=== PATIENT | male | born 1955 | race African-American/Black ===

== ENCOUNTER 2016-12-09 20:28 | Emergency (ER) | payer OTHER, BC ==
[~2016-12-09] VITALS: Ht 172.7 cm; Wt 88.0 kg
[~2016-12-09 20:28] MED LIST: AMLO5TAB2 PO; AMLO5TAB4 PO
[2016-12-09 20:35] VITALS: BP 138/82
[2016-12-09] MEDS ORDERED: DIPHTH,PERTUSS(ACELL),TET TOX 0.5 ML DISP.SYRIN. VAX IM ONE (21:00)
[2016-12-09] MEDS ORDERED: HYDROcodone/APAP 5/325MG 1 TAB TABLET PO ONE (21:00)
[2016-12-09] MEDS ORDERED: SULF1TAB24 PO (21:02)
--- NOTE | 2016-12-09 21:02 | PHYS DOC ---
Past Medical History Past Medical History: Hypertension, Other Additional Past Medical Histor: GOUT Past Surgical History: No Surgical History Alcohol Use: Heavy Additional Information: STATES HE DRINKS APPROX 2 BEERS A DAY Drug Use: None Adult General Chief Complaint Chief Complaint: ABSCESS HPI HPI Patient is a 61 year old male with history of hypertension who presents with an abscess on the facial area that he noted one week ago. Patient denies any drainage from the area. Denies any fever. Review of Systems Review of Systems Constitutional: Denies fever or chills [] Musculoskeletal: Denies back pain or joint pain [] Integument:an abscess on the facial area Neurologic: Denies headache, focal weakness or sensory changes [] Endocrine: Denies polyuria or polydipsia [] Allergies Allergies Allergies Coded Allergies Type Severity Reaction Last Updated Verified No Known Drug Allergies 12/13/14 No Physical Exam Physical Exam Constitutional: Well developed, well nourished, no acute distress, non-toxic appearance. [] Skin: Left cheondoism next to the hairline with an indurated area approximately 2 x 2 centimeters. The area is warm tender to touch and fluctuant. Back: No tenderness, no CVA tenderness. [] Extremities: No tenderness, no cyanosis, no clubbing, ROM intact, no edema. [] Neurologic: Alert and oriented X 3, normal motor function, normal sensory function, no focal deficits noted. [] Psychologic: Affect normal, judgement normal, mood normal. [] Current Patient Data Vital Signs Vital Signs Date Time Temp Pulse Resp B/P (MAP) Pulse Ox O2 Delivery O2 Flow Rate FiO2 12/09/16 20:35 98.2 91 18 96 Room Air 98.2 EKG EKG [] Radiology/Procedures Radiology/Procedures [] Impressions: Indication: abscess left facial area Procedure: The patient was positioned appropriately. Local anesthesia was not applicable. An incision was then made over the apex of the lesion with an 18- gauge needle and small amount of bloody yellow material was expressed. The drainage cavity was irrigated and covered with sterile gauze. The patients tetanus status updated as needed. The patient tolerated the procedure well. Complications: None Course & Med Decision Making Course & Med Decision Making Pertinent Labs and Imaging studies reviewed. (See chart for details) Patient has an abscess on the left cheondoism that was drained by me as noted in procedures. Discharged with Bactrim. Warm compresses recommended to the area. Given tetanus in the ED. Follow-up with PCP in 1-2 weeks. Dragon Disclaimer Dragon Disclaimer This electronic medical record was generated, in whole or in part, using a voice recognition dictation system. Departure Departure Impression: Primary Impression: Facial abscess Disposition: 01 HOME, SELF-CARE Condition: STABLE Referrals: BART BRAY (PCP) Follow-up with your doctor in 1-2 weeks Patient Instructions: Abscess, Care After Additional Instructions: You were seen for an abscess on the left cheondoism area that was drained in the emergency room. Keep the area clean and dry. Take the prescribed antibiotics until completed. Follow-up with your doctor in 1-2 weeks. Come back to the ED if symptoms does worsen. Scripts Sulfamethoxazole/Trimethoprim (BACTRIM DS TABLET) 1 Each Tablet 1 TAB PO BID, #20 TAB Prov: RAMESH JEAN APRN 12/09/16 RAMESH JEAN APRN Dec 09, 2016 21:02
== END 2016-12-09 21:08 | disposition home or self-care (01) ==
LOC: ER 20:28
DX: L02.01 Cutaneous abscess of face (principal); I10 Essential (primary) hypertension; M10.9 Gout, unspecified; F10.10 Alcohol abuse, uncomplicated
CPT/HCPCS: 10060; 90471; 90715; 99283-25

== ENCOUNTER → 2018-11-15 | Day surgery (SDC) | payer BC ==
[~2018-11-15] MED LIST changes: +ALLO100T PO; +AMLO5TAB10 PO; -AMLO5TAB2 PO; +ATOR20TA58 PO; +HYDR12.575 PO; +IV RINGERS,LACTATED 1000ML 1,000 ML IV SCH; +LIDOCAINE 1% PF 2 ML VIAL. ID PRN; +MIDAZOLAM HCL/PF 2 MG/2 ML VIAL. IV PRN; +NALT50TA PO; +PROPOFOL 20 ML IV ONE; +SULF1TAB24 PO; +fentaNYL PF VIAL 100 MCG/2 ML VIAL IV PRN
[2018-11-15 14:03] VITALS: BP 122/84
--- NOTE | 2018-11-16 14:07 | PATHOLOGY ---
[facility] Accession Number: [id number] . 01 Material submitted: . rectum - RECTAL POLYP . 01 Clinical history: . Positive colon guard . 02 Diagnosis: Colorectal biopsy, rectal polyp: - Hyperplastic polyp. (JPM:monty; 11/16/2018) QMS/11/16/2018 . 02 Comment: There are no adenomatous changes or evidence of malignancy. . (JPM:monty; 11/16/2018) . 02 Electronically signed: . Ian Rm MD, Pathologist NPI- [id number] . 01 Gross description: . The specimen is received in formalin, labeled "Luis Gonzalez, rectal polyp", is a benz soft tissue measuring 0.2 cm in greatest dimension, entirely submitted in A1. ([facility]; 11/15/2018) SHS/SHS . 02 Pathologist provided ICD-10: K62.1 . 02 CPT . 569808 Specimen Comment: A courtesy copy of this report has been sent to Specimen Comment: [phone], . Specimen Comment: Report sent to / DR BRAY [facility]formed at: 01 [facility] [address], [place] [id number] MD Clark Velázquez MD Phone: [phone] Performed at: 02 [facility] [address] [place], [place] [id number] MD Ian Rm MD Phone: [phone]
== END ==
LOC: SURG 12:37
PROVIDERS: ATTEND Internal Medicine Gastroenterology
DX: K62.1 Rectal polyp (principal); K64.0 First degree hemorrhoids; F17.210 Nicotine dependence, cigarettes, uncomplicated; I10 Essential (primary) hypertension; M10.9 Gout, unspecified; I25.10 Atherosclerotic heart disease of native coronary artery without angina pectoris; E78.5 Hyperlipidemia, unspecified; Z88.8 Allergy status to other drugs, medicaments and biological substances
CPT/HCPCS: 45380; 88305; J2704; 45378

== ENCOUNTER 2019-06-03 20:19 | Emergency (ER) | payer BC ==
[~2019-06-03] VITALS: Ht 172.7 cm; Wt 77.3 kg
[~2019-06-03 20:19] MED LIST changes: -IV RINGERS,LACTATED 1000ML 1,000 ML IV SCH; -LIDOCAINE 1% PF 2 ML VIAL. ID PRN; -MIDAZOLAM HCL/PF 2 MG/2 ML VIAL. IV PRN; -PROPOFOL 20 ML IV ONE; -fentaNYL PF VIAL 100 MCG/2 ML VIAL IV PRN
[2019-06-03 21:22] LABS: BASO % 1 % (0-3); EOS % 1 % (0-3); HEMATOCRIT 47.4 % (39.0-53.0); HEMOGLOBIN 15.7 g/dL (13.0-17.5); LYMPH # 1.5 x10^3/uL (1.0-4.8); LYMPH % 35 % (24-48); MEAN CORPUSCULAR HEMOGLOBIN 29 pg (25-35); MEAN CORPUSCULAR HGB CONC 33 g/dL (31-37); MEAN CORPUSCULAR VOLUME 87 fL (79-100); MONO # 0.5 x10^3/uL (0.0-1.1); MONO % 13 % (0-9); NEUT # 2.2 x10^3/uL (1.8-7.7); NEUT % 51 % (31-73); PLATELET COUNT 175 x10^3/uL (140-400); RED BLOOD COUNT 5.43 x10^6/uL (4.30-5.70); RED CELL DISTRIBUTION WIDTH 14.4 % (11.5-14.5); WHITE BLOOD COUNT 4.3 x10^3/uL (4.0-11.0)
[2019-06-03 21:41] LABS: ALBUMIN 3.8 g/dL (3.4-5.0); CALCIUM 8.9 mg/dL (8.5-10.1); GFR 91.6; TOTAL BILIRUBIN 0.7 mg/dL (0.2-1.0); TOTAL PROTEIN 7.7 g/dL (6.4-8.2)
[2019-06-03 21:46] LABS: POTASSIUM 2.8 mmol/L (3.5-5.1)
--- NOTE | 2019-06-03 22:11 | RAD ---
CT MAXILLOFACIAL WO CONTRAST, CT HEAD AND CERVICAL SPINE WO History: Fall. Syncope. Facial injury. Pain. Comparison: None. Technique: Noncontrast CT imaging was performed of the head, maxillofacial and cervical spine. Coronal and sagittal reconstructions were performed. Exposure: One or more of the following individualized dose reduction techniques were utilized for this examination: 1. Automated exposure control 2. Adjustment of the mA and/or kV according to patient size 3. Use of iterative reconstruction technique. Findings: Head CT: No intracranial hemorrhage. No mass effect. No hydrocephalus. Mild brain parenchymal volume loss. Mild foci of decreased attenuation within the hemispheric white matter, most often due to chronic microvascular ischemia. Maxillofacial CT: Anterior maxillary spine fracture. No additional fracture along the maxillary alveolar ridge involving the left central incisor root (series 3 image 33 and series 9 image 26). There is adjacent soft tissue swelling. Inferior lip soft tissue swelling. Nondisplaced right nasal bone fracture. Orbits are unremarkable. Mild scattered paranasal sinus mucosal thickening. Mastoid air cells are clear. No acute calvarial fracture. 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 Normal alignment. Normal vertebral body height. No fracture. Mild multilevel degenerative disc changes most prominent C6-C7. Moderate right facet arthropathy C3-C4 and C4-C5. No high-grade canal or neuroforaminal narrowing. Impression: Head CT: 1. No acute intracranial abnormality. Maxillofacial CT: 1. Acute anterior maxillary alveolar ridge fracture involving the left central incisor. 2. Acute anterior maxillary spine fracture with adjacent soft tissue swelling. 3. Age-indeterminate right nasal bone fracture. Correlate with point tenderness. CT cervical spine: 1. No acute fracture or subluxation of the cervical spine. Electronically signed by: Harinder Garcia DO (06/03/2019 10:07 PM) [facility]
[2019-06-03] MEDS ORDERED: NEOMY/BACITR/POLYMYXIN OINT PACKET. TP ONE ×2 (22:25→23:00)
[2019-06-03] MEDS ORDERED: DIPHTH,PERTUSS(ACELL),TET TOX 0.5 ML DISP.SYRIN. VAX IM ONE ×2 (22:25→23:00)
--- NOTE | 2019-06-03 22:29 | PHYS DOC ---
Past Medical History Past Medical History: Hypertension, Other Additional Past Medical Histor: GOUT Past Surgical History: No Surgical History Alcohol Use: Heavy Drug Use: None Adult General Chief Complaint Chief Complaint: SYNCOPE HPI HPI 63-year-old male presents to the emergency Department after syncopal episodes happened approximately 50 minutes prior to his arrival. Witnessed loss of consciousness presents with 2-3 minutes. Patient states became dizzy, nauseous with little bit of chest and subsequently passed out. He states this happened yesterday as well. Today he hit his face on the concrete with superficial lacerations to his lips patient chipped his tooth as well however no avulsion. He does have evidence of loosening of his 2 front teeth. Patient currently denies any chest pain, dizziness, nausea, vomiting. He does have a headache. Review of Systems Review of Systems Constitutional: Denies fever or chills [] Respiratory: Denies cough or shortness of breath [] Cardiovascular: No additional information not addressed in HPI [] GI: Denies abdominal pain, + nausea, vomiting, no bloody stools or diarrhea [] : Denies dysuria or hematuria [] Musculoskeletal: Denies back pain or joint pain [] Integument: Denies rash or skin lesions [] Neurologic: + headache, focal weakness or sensory changes [] All other systems were reviewed and found to be within normal limits, except as documented in this note. Current Medications Current Medications Current Medications Medications (Trade) Dose Ordered Sig/Anabell Start Time Stop Time Status Last Admin Dose Admin Diphtheria/ Tetanus/Acell Pertussis (Boostrix) 0.5 ml STK-MED ONCE 06/03/19 22:25 06/03/19 22:26 DC Hydralazine HCl (Apresoline Inj) 10 mg 1X ONCE 06/03/19 23:00 06/03/19 23:01 DC 06/03/19 23:22 10 MG Info (CONTRAST GIVEN -- Rx MONITORING) 1 each PRN DAILY PRN 06/03/19 23:45 06/05/19 23:44 Iohexol (Omnipaque 350 Mg/ml) 90 ml 1X ONCE 06/04/19 00:00 06/04/19 00:01 DC 06/04/19 00:09 90 ML Neomycin/ Polymyxin/ Bacitracin (Triple Antibiotic Ointment) 1 pkt 1X ONCE 06/03/19 23:00 06/03/19 23:01 DC 06/03/19 23:21 1 PKT Potassium Chloride/Water 100 ml @ 100 mls/hr Q1H 06/03/19 23:30 06/04/19 03:29 06/03/19 23:22 100 MLS/HR Allergies Allergies Allergies Coded Allergies Type Severity Reaction Last Updated Verified lisinopril Allergy Intermediate 11/15/18 Yes Physical Exam Physical Exam Constitutional: Well developed, well nourished, no acute distress, non-toxic appearance. [] HENT: Normocephalic, abrasion to nose, superficial lacerations to bottom/top lip, loose teeth apreciated - left incisor, bilateral external ears normal, oropharynx moist, no oral exudates, nose normal. [] Eyes: PERRLA, EOMI, conjunctiva normal, no discharge. [] Neck: Normal range of motion, no tenderness, supple, no stridor. [] Cardiovascular:Heart rate regular rhythm, no murmur [] Lungs & Thorax: Bilateral breath sounds clear to auscultation [] Abdomen: Bowel sounds normal, soft, no tenderness, no masses, no pulsatile masses. [] Skin: Warm, dry, no erythema, no rash. [] Back: No tenderness, no CVA tenderness. [] Extremities: No tenderness, no edema. [] Neurologic: Alert and oriented X 3, no focal deficits noted. [] Psychologic: Affect normal, judgement normal, mood normal. [] Current Patient Data Vital Signs Vital Signs Date Time Temp Pulse Resp B/P (MAP) Pulse Ox O2 Delivery O2 Flow Rate FiO2 06/03/19 23:22 74 172/105 06/03/19 21:35 27 99 Room Air 06/03/19 20:35 98.2 98.2 Lab Values Laboratory Tests Test 06/03/19 20:43 06/03/19 22:36 White Blood Count 4.3 x10^3/uL (4.0-11.0) Red Blood Count 5.43 x10^6/uL (4.30-5.70) Hemoglobin 15.7 g/dL (13.0-17.5) Hematocrit 47.4 % (39.0-53.0) Mean Corpuscular Volume 87 fL (79-100) Mean Corpuscular Hemoglobin 29 pg (25-35) Mean Corpuscular Hemoglobin Concent 33 g/dL (31-37) Red Cell Distribution Width 14.4 % (11.5-14.5) Platelet Count 175 x10^3/uL (140-400) Neutrophils (%) (Auto) 51 % (31-73) Lymphocytes (%) (Auto) 35 % (24-48) Monocytes (%) (Auto) 13 % (0-9) H Eosinophils (%) (Auto) 1 % (0-3) Basophils (%) (Auto) 1 % (0-3) Neutrophils # (Auto) 2.2 x10^3/uL (1.8-7.7) Lymphocytes # (Auto) 1.5 x10^3/uL (1.0-4.8) Monocytes # (Auto) 0.5 x10^3/uL (0.0-1.1) Eosinophils # (Auto) 0.0 x10^3/uL (0.0-0.7) Basophils # (Auto) 0.0 x10^3/uL (0.0-0.2) D-Dimer (Mela) 1.42 ug/mlFEU (0.00-0.50) H Sodium Level 139 mmol/L (136-145) Potassium Level 2.8 mmol/L (3.5-5.1) *L Chloride Level 100 mmol/L (98-107) Carbon Dioxide Level 29 mmol/L (21-32) Anion Gap 10 (6-14) Blood Urea Nitrogen 7 mg/dL (8-26) L Creatinine 1.0 mg/dL (0.7-1.3) Estimated GFR (Cockcroft-Gault) 91.6 BUN/Creatinine Ratio 7 (6-20) Glucose Level 140 mg/dL (70-99) H Calcium Level 8.9 mg/dL (8.5-10.1) Magnesium Level 1.7 mg/dL (1.8-2.4) L Total Bilirubin 0.7 mg/dL (0.2-1.0) Aspartate Amino Transferase (AST) 47 U/L (15-37) H Alanine Aminotransferase (ALT) 24 U/L (16-63) Alkaline Phosphatase 65 U/L (46-116) Total Protein 7.7 g/dL (6.4-8.2) Albumin 3.8 g/dL (3.4-5.0) Albumin/Globulin Ratio 1.0 (1.0-1.7) Urine Collection Type Unknown Urine Color Yellow Urine Clarity Clear Urine pH 7.0 Urine Specific [place] <=1.005 Urine Protein Negative mg/dL (NEG-TRACE) Urine Glucose (UA) Negative mg/dL (NEG) Urine Ketones (Stick) Negative mg/dL (NEG) Urine Blood Negative (NEG) Urine Nitrite Negative (NEG) Urine Bilirubin Negative (NEG) Urine Urobilinogen Dipstick 1.0 mg/dL (0.2 mg/dL) Urine Leukocyte Esterase Trace (NEG) Urine RBC 0 /HPF (0-2) Urine WBC 1-4 /HPF (0-4) Urine Bacteria 0 /HPF (0-FEW) Laboratory Tests 06/03/19 20:43 Laboratory Tests 06/03/19 20:43 EKG EKG EKG reviewed interpretation time [address] elevation WA, left axis deviation, normal sinus rhythm, heart rate 82[] Radiology/Procedures Radiology/Procedures [facility] [address] [place] [address] IMAGING REPORT Signed PATIENT: LYSSA LAUREN ACCOUNT: [id number] : 1955 LOCATION: ER AGE: 63 SEX: M EXAM STATUS: PRE ER ORD. PHYSICIAN: ELVIRA BARCENAS MD REASON: fall/syncope PROCEDURE: CT MAXILLOFACIAL WO CONTRAST CT MAXILLOFACIAL WO CONTRAST, CT HEAD AND CERVICAL SPINE WO History: Fall. Syncope. Facial injury. Pain. Comparison: None. Technique: Noncontrast CT imaging was performed of the head, maxillofacial and cervical spine. Coronal and sagittal reconstructions were performed. Exposure: One or more of the following individualized dose reduction techniques were utilized for this examination: 1. Automated exposure control 2. Adjustment of the mA and/or kV according to patient size 3. Use of iterative reconstruction technique. Findings: Head CT: No intracranial hemorrhage. No mass effect. No hydrocephalus. Mild brain parenchymal volume loss. Mild foci of decreased attenuation within the hemispheric white matter, most often due to chronic microvascular ischemia. Maxillofacial CT: Anterior maxillary spine fracture. No additional fracture along the maxillary alveolar ridge involving the left central incisor root (series 3 image 33 and series 9 image 26). There is adjacent soft tissue swelling. Inferior lip soft tissue swelling. Nondisplaced right nasal bone fracture. Orbits are unremarkable. Mild scattered paranasal sinus mucosal thickening. Mastoid air cells are clear. No acute calvarial fracture. 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 Normal alignment. Normal vertebral body height. No fracture. Mild multilevel degenerative disc changes most prominent C6-C7. Moderate right facet arthropathy C3-C4 and C4-C5. No high-grade canal or neuroforaminal narrowing. Impression: Head CT: 1. No acute intracranial abnormality. Maxillofacial CT: 1. Acute anterior maxillary alveolar ridge fracture involving the left central incisor. 2. Acute anterior maxillary spine fracture with adjacent soft tissue swelling. 3. Age-indeterminate right nasal bone fracture. Correlate with point tenderness. CT cervical spine: 1. No acute fracture or subluxation of the cervical spine. Electronically signed by: Harinder Garcia DO (06/03/2019 10:07 PM) [facility] DICTATED and SIGNED BY: HARINDER GARCIA DO DATE: 06/03/192206 [] [facility] [address] [place] [address] IMAGING REPORT Signed PATIENT: LYSSA LAUREN ACCOUNT: [id number] : 1955 LOCATION: ER AGE: 63 SEX: M EXAM STATUS: REG ER ORD. PHYSICIAN: ELVIRA BARCENAS MD REASON: Syncope, OMNI 350, 90 ML IV PROCEDURE: CT ANGIOGRAPHY CHEST EXAM: CT chest with contrast - pulmonary embolus protocol CLINICAL HISTORY: Syncope. COMPARISON: None. TECHNIQUE: CT of the chest following the administration of intravenous contrast during the pulmonary arterial phase. Axial, coronal and sagittal reformatted images were generated including MIP images. ---PQRS compliance statement - One or more of the following individualized dose reduction techniques were utilized for this study: 1. Automated exposure control 2. Adjustment of the mA and/or kV according to patient size 3. Use of iterative reconstruction technique--- FINDINGS: CHEST: Diagnostic quality: Suboptimal. Pulmonary emboli: No pulmonary emboli to the level of the lobar branches. More peripheral vessels are not well assessed. Right heart strain: None Pulmonary arteries: Normal in caliber. Heart is not enlarged. No pericardial effusion. Atherosclerotic calcifications of aorta are seen which appears are grossly normal in caliber. No pleural effusion or pneumothorax. Dependent opacities in the lower lobes including wedge-shaped and linear opacities likely scarring/atelectasis. Left upper lobe calcified granuloma. No thoracic lymphadenopathy. Visualized Upper abdomen: Unremarkable Bones: Mild degenerative changes of spine are seen. Evaluation of the osseous structures limited given MIP reconstructions. IMPRESSION: 1. Suboptimal contrast bolus. No pulmonary emboli to the level of the lobar branches. More peripheral vessels are not well assessed. 2. No lobar consolidation. 3. Linear opacities lower lobes likely scarring/atelectasis. Electronically signed by: Sathya Omalley MD (06/04/2019 12:27 AM) [facility] DICTATED and SIGNED BY: SATHYA OMALLEY MD DATE: 06/04/19 0027 Course & Med Decision Making Course & Med Decision Making Pertinent Labs and Imaging studies reviewed. (See chart for details) []63-year-old male presents to the emergency Department after syncopal episodes happened approximately 50 minutes prior to his arrival. Witnessed loss of consciousness presents with 2-3 minutes. Patient states became dizzy, nauseous with little bit of chest and subsequently passed out. He states this happened yesterday as well. Today he hit his face on the concrete with superficial lac erations to his lips patient chipped his tooth as well however no avulsion. He does have evidence of loosening of his 2 front teeth. Patient currently denies any chest pain, dizziness, nausea, vomiting. He does have a headache. Boostrix provided IM Hypdralazine IM 10mg x 1 Labs reviewed - patient with evidence of hypokalemia, 2.8, d-dimer elevated 1.42, hypomag 1.7 Electrolytes replaced CTA reviewed, no large burden PE CT findings with evidence of alveolar ridge fracture, alveolar spine fracture transfer center contacted [phone] Accepting physician [phone] - DR. BASILIO Christy Disclaimer [place] Disclaimer This electronic medical record was generated, in whole or in part, using a voice recognition dictation system. Departure Departure Impression: Primary Impression: Syncope Additional Impressions: Closed fracture of alveolar ridge of maxilla Hypokalemia Hypertension Hypomagnesemia Disposition: 05 TRANSFER OTHER Condition: STABLE Referrals: BART BRAY (PCP) Critical Care Time Critical care time was 35 minutes exclusive of procedures. Problem Qualifiers Primary Impression: Syncope Syncope type: unspecified Qualified Codes: R55 - Syncope and collapse Additional Impressions: Closed fracture of alveolar ridge of maxilla Encounter type: initial encounter Qualified Codes: S02.42XA - Fracture of alveolus of maxilla, initial encounter for closed fracture Hypertension Hypertension type: essential hypertension Qualified Codes: I10 - Essential (primary) hypertension ELVIRA BARCENAS MD Jun 03, 2019 22:29
[2019-06-03 22:50] LABS: BILIRUBIN,URINE NEGATIVE (NEG); CLARITY,URINE CLEAR; COLOR,URINE YELLOW; NITRITE,URINE NEGATIVE (NEG); PROTEIN,URINE NEGATIVE (NEG-TRACE)
[2019-06-03 22:55] LABS: BACTERIA,URINE 0 /HPF (0-FEW); RBC,URINE 0 /HPF (0-2)
[2019-06-03] MEDS ORDERED: hydrALAZINE 20 MG/ML VIAL. IVP ONE (23:00)
[2019-06-03] MEDS: POTASSIUM CHLORIDE 10MEQ 100 ML IV SCH (23:22)
[2019-06-03] MEDS ORDERED: CONTRAST GIVEN. MC PRN (23:45)
[2019-06-04] MEDS ORDERED: IOHEXOL 350 MG/ML 100 ML VIAL. IV ONE
--- NOTE | 2019-06-04 00:30 | RAD ---
EXAM: CT chest with contrast - pulmonary embolus protocol CLINICAL HISTORY: Syncope. COMPARISON: None. TECHNIQUE: CT of the chest following the administration of intravenous contrast during the pulmonary arterial phase. Axial, coronal and sagittal reformatted images were generated including MIP images. ---PQRS compliance statement - One or more of the following individualized dose reduction techniques were utilized for this study: 1. Automated exposure control 2. Adjustment of the mA and/or kV according to patient size 3. Use of iterative reconstruction technique--- FINDINGS: CHEST: Diagnostic quality: Suboptimal. Pulmonary emboli: No pulmonary emboli to the level of the lobar branches. More peripheral vessels are not well assessed. Right heart strain: None Pulmonary arteries: Normal in caliber. Heart is not enlarged. No pericardial effusion. Atherosclerotic calcifications of aorta are seen which appears are grossly normal in caliber. No pleural effusion or pneumothorax. Dependent opacities in the lower lobes including wedge-shaped and linear opacities likely scarring/atelectasis. Left upper lobe calcified granuloma. No thoracic lymphadenopathy. Visualized Upper abdomen: Unremarkable Bones: Mild degenerative changes of spine are seen. Evaluation of the osseous structures limited given MIP reconstructions. IMPRESSION: 1. Suboptimal contrast bolus. No pulmonary emboli to the level of the lobar branches. More peripheral vessels are not well assessed. 2. No lobar consolidation. 3. Linear opacities lower lobes likely scarring/atelectasis. Electronically signed by: Sathya Roman MD (06/04/2019 12:27 AM) [facility]
[2019-06-04] MEDS: POTASSIUM CHLORIDE 10MEQ 100 ML IV SCH (00:45)
[2019-06-04 00:49] VITALS: BP 129/78
[2019-06-04] MEDS ORDERED: MAGNESIUM SULFATE 2GM 50 ML IV ONE (01:00)
[2019-06-04] MEDS ORDERED: ONDANSETRON PF 4 MG/2 ML VIAL. IVP ONE (01:30)
[2019-06-04] MEDS ORDERED: MORPHINE SULFATE 2 MG/ML VIAL. IV ONE (01:30)
--- NOTE | 2019-06-04 12:08 | EKG ---
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
== END 2019-06-04 01:04 | disposition short-term general hospital (02) ==
LOC: ER 20:19
DX: S02.42XA Fracture of alveolus of maxilla, initial encounter for closed fracture (principal); S02.2XXA Fracture of nasal bones, initial encounter for closed fracture; S01.511A Laceration without foreign body of lip, initial encounter; K08.419 Partial loss of teeth due to trauma, unspecified class; R55 Syncope and collapse; E87.6 Hypokalemia; I10 Essential (primary) hypertension; E83.42 Hypomagnesemia; F10.10 Alcohol abuse, uncomplicated; Z88.8 Allergy status to other drugs, medicaments and biological substances; W22.8XXA Striking against or struck by other objects, initial encounter; Y93.89 Activity, other specified; Y92.89 Other specified places as the place of occurrence of the external cause; Y99.8 Other external cause status
CPT/HCPCS: 36415; 70450; 70486; 71275; 72125; 80053; 81001; 83735; 85025; 85379; 87086; 90471; 90715; 93005; 96365; 96366; 96368; 96372; 96375; 99285; J0360; J2270; J2405; J3475; J3480; Q9967

== ENCOUNTER 2021-09-27 11:02 | Emergency (ER) | payer BC ==
[~2021-09-27] VITALS: Ht 172.7 cm; Wt 76.8 kg
[~2021-09-27 11:02] MED LIST changes: +AMLO-186 PO; -AMLO5TAB10 PO
[2021-09-27 11:05] VITALS: BP 148/93
[2021-09-27 13:12] LABS: BASO % 1 % (0-3); EOS % 1 % (0-3); HEMATOCRIT 42.8 % (39.0-53.0); HEMOGLOBIN 14.3 g/dL (13.0-17.5); LYMPH # 1.3 x10^3/uL (1.0-4.8); LYMPH % 22 % (24-48); MEAN CORPUSCULAR HEMOGLOBIN 29 pg (25-35); MEAN CORPUSCULAR HGB CONC 33 g/dL (31-37); MEAN CORPUSCULAR VOLUME 88 fL (79-100); MONO # 0.9 x10^3/uL (0.0-1.1); MONO % 15 % (0-9); NEUT # 3.6 x10^3/uL (1.8-7.7); NEUT % 61 % (31-73); PLATELET COUNT 228 x10^3/uL (140-400); RED BLOOD COUNT 4.89 x10^6/uL (4.30-5.70); RED CELL DISTRIBUTION WIDTH 13.8 % (11.5-14.5); WHITE BLOOD COUNT 5.8 x10^3/uL (4.0-11.0)
--- NOTE | 2021-09-27 13:15 | RAD ---
XR KNEE _4 VIEWS WITH PATELLA_LT History: Reason: knee pain / Spl. Instructions: / History: Technique: 4 views right knee. Comparison: None. Findings: Large knee joint effusion with possible lipohemarthrosis. Subtle linear lucency through the lateral t ibial plateau tibia on oblique view. Chronic infrapatellar fragmentation. Mild left knee degenerative changes most prominent in the medial and patellofemoral compartment. Vascular calcifications. Impression: 1. Large knee joint effusion with possible lipohemarthrosis. 2. Subtle linear lucency through the lateral tibial plateau, may relate to artifact or nondisplaced fracture. Recommend CT to further assess. Electronically signed by: Harinder Garcia DO (09/27/2021 1:12 PM) [id number]
--- NOTE | 2021-09-27 13:22 | PHYS DOC ---
Past Medical History Past Medical History: Hypertension, Other Additional Past Medical Histor: GOUT (ELLIE COELHO APRN) Past Surgical History: No Surgical History (ELLIE COELHO APRN) Smoking Status: Current Every Day Smoker Alcohol Use: Heavy Drug Use: None (ELLIE COELHO APRN) General Adult EDM: Chief Complaint: LOWER EXT PAIN HPI: HPI: Patient is a 66-year-old male who presents today with left knee pain. Patient s tates the pain in his knee started 2 days ago, he states that he has a history of gout and he believes this is a gout flareup in his knee. Patient denies chest pain or shortness of breath, he has states that he has had chills but he said the weather change has always caused him to have chills. Patient does walk with a assist device and he says that is pretty normal for him. (ELLIE COELHO APRN) Review of Systems: Review of Systems: Constitutional: Denies fever or chills. [] Eyes: Denies change in visual acuity. [] HENT: Denies nasal congestion or sore throat. [] Respiratory: Denies cough or shortness of breath. [] Cardiovascular: Denies chest pain or edema. [] GI: Denies abdominal pain, nausea, vomiting, bloody stools or diarrhea. [] : Denies dysuria. [] Musculoskeletal: Left knee pain Integument: Denies rash. [] Neurologic: Denies headache, focal weakness or sensory changes. [] Endocrine: Denies polyuria or polydipsia. [] Lymphatic: Denies swollen glands. [] Psychiatric: Denies depression or anxiety. [] (ELLIE COELHO APRN) Heart Score: C/O Chest Pain: No Risk Factors: Risk Factors: DM, Current or recent (<one month) smoker, HTN, HLP, family history of CAD, obesity. Risk Scores: Score 0 - 3: 2.5% MACE over next 6 weeks - Discharge Home Score 4 - 6: 20.3% MACE over next 6 weeks - Admit for Clinical Observation Score 7 - 10: 72.7% MACE over next 6 weeks - Early Invasive Strategies (ELLIE COELHO APRN) Allergies: Allergies: Allergies Coded Allergies Type Severity Reaction Last Updated Verified lisinopril Allergy Intermediate 09/27/21 Yes (ELLIE COELHO APRN) Physical Exam: PE: Constitutional: Well developed, well nourished, no acute distress, non-toxic appearance. [] HENT: Normocephalic, atraumatic, bilateral external ears normal, oropharynx moist, no oral exudates, nose normal. [] Eyes: PERRLA, EOMI, conjunctiva normal, no discharge. [] Neck: Normal range of motion, no tenderness, supple, no stridor. [] Cardiovascular:Heart rate regular rhythm, no murmur [] Lungs & Thorax: Bilateral breath sounds clear to auscultation [] Abdomen: Bowel sounds normal, soft, no tenderness, no masses, no pulsatile masses. [] Skin: Warm, dry, no erythema, no rash. [] Back: No tenderness, no CVA tenderness. [] Extremities: Left knee is swollen and tender to touch it is warm, patient has limited range of motion due to pain, dorsalis pedis pulse is 2+ and sensory is intact distal to the injury. Neurologic: Alert and oriented X 3, normal motor function, normal sensory function, no focal deficits noted. [] Psychologic: Affect normal, judgement normal, mood normal. [] (ELLIE COELHO ELECTRONICS ASSEMBLER AND TESTER) PE: Constitutional: Well developed, well nourished, no acute distress, non-toxic appearance Lungs & Thorax: No respiratory distress, equal chest rise and fall Skin: Warm, dry, no erythema, Extremities: Left knee tenderness on palpation with increased warmth, mild edema, ROM with some tenderness but intact Neurologic: Alert and oriented X 3, no focal deficits noted Psychologic: Affect normal, judgment normal (HOMER PRETTY DO) Current Patient Data: Labs: Laboratory Tests Test 09/27/21 12:44 White Blood Count 5.8 x10^3/uL Red Blood Count 4.89 x10^6/uL Hemoglobin 14.3 g/dL Hematocrit 42.8 % Mean Corpuscular Volume 88 fL Mean Corpuscular Hemoglobin 29 pg Mean Corpuscular Hemoglobin Concent 33 g/dL Red Cell Distribution Width 13.8 % Platelet Count 228 x10^3/uL Neutrophils (%) (Auto) 61 % Lymphocytes (%) (Auto) 22 % Monocytes (%) (Auto) 15 % Eosinophils (%) (Auto) 1 % Basophils (%) (Auto) 1 % Neutrophils # (Auto) 3.6 x10^3/uL Lymphocytes # (Auto) 1.3 x10^3/uL Monocytes # (Auto) 0.9 x10^3/uL Eosinophils # (Auto) 0.0 x10^3/uL Basophils # (Auto) 0.0 x10^3/uL Sodium Level 138 mmol/L Potassium Level 3.7 mmol/L Chloride Level 100 mmol/L Carbon Dioxide Level 29 mmol/L Anion Gap 9 Blood Urea Nitrogen 10 mg/dL Creatinine 0.9 mg/dL Estimated GFR (Cockcroft-Gault) 102.5 BUN/Creatinine Ratio 11 Glucose Level 101 mg/dL Uric Acid 6.3 mg/dL Calcium Level 8.8 mg/dL Total Bilirubin 0.9 mg/dL Aspartate Amino Transf (AST/SGOT) 27 U/L Alanine Aminotransferase (ALT/SGPT) 15 U/L Alkaline Phosphatase 83 U/L Total Protein 7.8 g/dL Albumin 3.5 g/dL Albumin/Globulin Ratio 0.8 Laboratory Tests Test 09/27/21 12:44 White Blood Count 5.8 x10^3/uL (4.0-11.0) Red Blood Count 4.89 x10^6/uL (4.30-5.70) Hemoglobin 14.3 g/dL (13.0-17.5) Hematocrit 42.8 % (39.0-53.0) Mean Corpuscular Volume 88 fL (79-100) Mean Corpuscular Hemoglobin 29 pg (25-35) Mean Corpuscular Hemoglobin Concent 33 g/dL (31-37) Red Cell Distribution Width 13.8 % (11.5-14.5) Platelet Count 228 x10^3/uL (140-400) Neutrophils (%) (Auto) 61 % (31-73) Lymphocytes (%) (Auto) 22 % (24-48) L Monocytes (%) (Auto) 15 % (0-9) H Eosinophils (%) (Auto) 1 % (0-3) Basophils (%) (Auto) 1 % (0-3) Neutrophils # (Auto) 3.6 x10^3/uL (1.8-7.7) Lymphocytes # (Auto) 1.3 x10^3/uL (1.0-4.8) Monocytes # (Auto) 0.9 x10^3/uL (0.0-1.1) Eosinophils # (Auto) 0.0 x10^3/uL (0.0-0.7) Basophils # (Auto) 0.0 x10^3/uL (0.0-0.2) Laboratory Tests 09/27/21 12:44 Vital Signs: Vital Signs Date Time Temp Pulse Resp B/P (MAP) Pulse Ox O2 Delivery O2 Flow Rate FiO2 09/27/21 11:05 98.6 77 12 148/93 (111) 98 Room Air 98.6 (ELLIE COELHO APRN) EKG: EKG: [] (ELLIE COELHO APRN) Radiology/Procedures: Radiology/Procedures: REASON: knee pain PROCEDURE: KNEE LEFT 4V XR KNEE _4 VIEWS WITH PATELLA_LT History: Reason: knee pain / Spl. Instructions: / History: Technique: 4 views right knee. Comparison: None. Findings: Large knee joint effusion with possible lipohemarthrosis. Subtle linear lucency through the lateral tibial plateau tibia on oblique view. Chronic infrapatellar fragmentation. Mild left knee degenerative changes most prominent in the medial and patellofemoral compartment. Vascular calcifications. Impression: 1. Large knee joint effusion with possible lipohemarthrosis. 2. Subtle linear lucency through the lateral tibial plateau, may relate to artifact or nondisplaced fracture. Recommend CT to further assess. Electronically signed by: Harinder Garcia DO (09/27/2021 1:12 PM) [id number] [] (ELLIE COELHO APRN) Course & Med Decision Making: Course & Med Decision Making Pertinent Labs and Imaging studies reviewed. (See chart for details) [id number] I reviewed radiological and laboratory results with patient and with Dr. Pretty, and it was noted that the patient's white count and uric acid levels were within normal limits at this time, we will treat the patient with steroids, pain medications, and the patient will be instructed to rest, ice, compress, and elevate his left knee. Patient will be given the name of the orthopedic doctor Dr Bailey for him to follow-up with next week for further evaluation and management of his left knee issues. Patient is instructed to return here to the emergency department should the patient pain get worse, increased swelling or redness in the knee or he develops a fever. (ELLIE COELHO APRN) [place] Disclaimer: [place] Disclaimer: This electronic medical record was generated, in whole or in part, using a voice recognition dictation system. (ELLIE COELHO APRN) Departure Departure Impression: Primary Impression: Swelling of knee joint, left Disposition: HOME / SELF CARE / HOMELESS Condition: STABLE Referrals: RYAMOND NOVOA MD (PCP) MICHAELA BAILEY DO Patient Instructions: Knee Pain, RICE - Routine Care for Injuries Additional Instructions: Medrol Dosepak as directed Hydrocodone take 1 tablet every 6 hours as needed for pain, use with caution may cause drowsiness and constipation Motrin 600 mg take 1 tablet every 6 hours as needed for mild to moderate pain, take with food it may cause it to stomach upset if taken on an empty stomach Ice and elevate 20 minutes on 4-5 times daily, wear Ruperto wrap for comfort Follow-up with your primary care physician or Dr. Bailey the orthopedic doctor on-call for further evaluation and management of your left knee pain Return to the emergency department should you have increased knee swelling and redness and warmth, or development of a fever Scripts Hydrocodone Bit/Acetaminophen (HYDROCODONE-APAP 5-325 ) 1 Tab Tablet 1 TAB PO PRN Q6HRS PRN for PAIN, #20 TAB 0 Refills Prov: ELLIE COELHO APRN 09/27/21 Methylprednisolone (MEDROL) 4 Mg Tab.ds.pk 1 PKG PO UD, #1 PKG Prov: ELLIE COELHO APRN 09/27/21 Ibuprofen (IBUPROFEN) 600 Mg Tablet 600 MG PO PRN Q6HRS PRN for INFLAMMATION, #30 TAB Prov: ELLIE COELHO APRN 09/27/21 Attending Signature Attending Signature I have personally interviewed and examined the patient. All charts, labs, and imaging studies were reviewed. I agree with the PA/BACKEND JAVA DEVELOPER's findings, exam, and plan. (HOMER PRETTY DO) ELLIE COELHO APRN September 27, 2021 13:22 HOMER PRETTY DO September 27, 2021 17:54
[2021-09-27 13:24] LABS: CALCIUM 8.8 mg/dL (8.5-10.1); CREATININE 0.9 mg/dL (0.7-1.3); GFR 102.5; POTASSIUM 3.7 mmol/L (3.5-5.1)
[2021-09-27 13:30] LABS: ALBUMIN 3.5 g/dL (3.4-5.0); ALBUMIN/GLOBULIN RATIO 0.8 (1.0-1.7); TOTAL BILIRUBIN 0.9 mg/dL (0.2-1.0); TOTAL PROTEIN 7.8 g/dL (6.4-8.2); URIC ACID 6.3 mg/dL (3.5-7.2)
[2021-09-27] MEDS ORDERED: HYDR-2761 PO (13:57)
[2021-09-27] MEDS ORDERED: METH4TAB2 PO (13:57)
[2021-09-27] MEDS ORDERED: IBUP-1007 PO (13:57)
== END 2021-09-27 14:15 | disposition home or self-care (01) ==
LOC: ER 11:02
DX: M25.462 Effusion, left knee (principal); I10 Essential (primary) hypertension; F17.200 Nicotine dependence, unspecified, uncomplicated; M10.9 Gout, unspecified; Z88.6 Allergy status to analgesic agent
CPT/HCPCS: 36415; 73564; 80053; 84550; 85025; 99284